=== PATIENT | male | born 1970 | race Caucasian/White ===

== ENCOUNTER 2020-10-04 17:03 | Emergency (ER) | payer OTHER ==
[2020-10-04 18:35] LABS: HEMOGLOBIN 15.1 gm/dl (14.0-17.5); RED BLOOD COUNT 5.08 M/UL (4.20-5.50); WHITE BLOOD COUNT 5.5 K/UL (4.5-11.0)
[2020-10-04 18:56] LABS: BUN/CREATININE RATIO 18 (0-10)
[2020-10-04] MEDS ORDERED: PERCOCET 5/325 T1 EA PO (20:47)
== END 2020-10-04 23:30 | disposition home or self-care (01) ==
LOC: ER1 17:03
PROVIDERS: Student in an Organized Health Care Education/Training Program
DX: R07.81 Pleurodynia (principal); M54.5 Low back pain; I10 Essential (primary) hypertension; E11.9 Type 2 diabetes mellitus without complications; V43.52XA Car driver injured in collision with other type car in traffic accident, initial encounter; Y92.410 Unspecified street and highway as the place of occurrence of the external cause
CPT/HCPCS: 71045; 71260; 72128; 72131; 73590; 80053; 82550; 82553; 83874; 84484; 85025; 93005; 96374; 96375; 99285; J1885; J2270; J2405; Q9967